=== PATIENT | female | born 2005 | race Caucasian/White ===

== ENCOUNTER 2024-01-05 00:08 | Emergency (ER) | payer SELFPAY ==
[~2024-01-05] VITALS: Ht 167.6 cm; Wt 54.5 kg
[2024-01-05 00:09] VITALS: TEMP 97
[2024-01-05 00:33] VITALS: BP 120/80; PULSE 87
== END 2024-01-05 00:33 | disposition home or self-care (01) ==
LOC: COL.ER 00:08
DX: S01.81XA Laceration without foreign body of other part of head, initial encounter (principal); W01.198A Fall on same level from slipping, tripping and stumbling with subsequent striking against other object, initial encounter